=== PATIENT | male | born 1970 ===

== ENCOUNTER 2023-03-02 17:05 | Emergency (ER) | payer BC ==
--- OUTSIDE RECORDS SUMMARY | 2023-03-02 17:09 | XMS REPORT | Continuity of Care Document ---
:1970 Author Organization [facility] t Address [address] [place] [address] Care Team Providers Name Role Phone Asked, No Pcp Primary Care Physician Unavailable SHANIKA ANDERSON Attending Clinician Unavailable Problems This patient has no known problems. Allergies, Adverse Reactions, Alerts This patient has no known allergies or adverse reactions. Social History Social Habit Start Date Stop Date Quantity Comments Source Sexual orientation Method [facility] Sex Assigned At [birth year] [facility] 00:00:00 00:00:00 Smoking Status Start Date Stop Date Source Tobacco smoking consumption unknown [facility] Medications This patient has no known medications. Procedures This patient has no known procedures. Plan of Care Planned Activity Planned Date Details Comments Source Future Scheduled 2023-02-08 INFLUENZA VACCINE Method [facility] Test 01:37:45 (#1) [code = INFLUENZA VACCINE (#1)] Future Scheduled 2023-02-08 Screening for [facility] Test 01:37:45 malignant neoplasm of colon (procedure) [code = 740532172] Future Scheduled 2023-02-08 Screening for [facility] Test 01:37:45 malignant neoplasm of colon (procedure) [code = 027851144] Future Scheduled 2023-02-08 Screening for [facility] Test 01:37:45 malignant neoplasm of colon (procedure) [code = 125628063] Future Scheduled 2023-02-08 COVID-19 VACCINE [facility] Test 01:37:45 (#1) [code = COVID-19 VACCINE (#1)] Future Scheduled 2023-02-08 [facility] Test 01:37:45 screening (procedure) [code = [id number]] Future Scheduled 2023-02-08 Screening for [facility] Test 01:37:45 malignant neoplasm of colon (procedure) [code = 951422500] Future Scheduled 2023-02-08 Screening for [facility] Test 01:37:45 malignant neoplasm of colon (procedure) [code = 754345665] Future Scheduled 2023-02-08 [facility]INES [facility] Test 01:37:45 (1 of 2) [code = SHINGLES VACCINES (1 of 2)] Encounters Start End Encounter Admission Attending Care Care Encounter Source Date/Time Date/Time Type Type Clinicians Facility Department ID 2021-01-05 2021-01-05 Outpatient [facility] [id number] [place] 00:00:00 00:00:00 SHANIKA [address] 2021-01-05 2021-01-05 Outpatient [facility] [id number] [place] 00:00:00 00:00:00 SHANIKA [address] Results This patient has no known results.
[2023-03-02 18:29] LABS: Absolute Lymphocytes (CBC) 1.2 K/uL (0.7-4.9); Hematocrit 44.9 % (39.6-49.0); Lymphocytes % 8.4 % (15.3-44.8); MCV 88.4 fL (80-100); MPV 7.7 fL (7.6-11.3); Platelets 214 thou/uL (152-406); RBC Red Blood Cell Count 5.08 M/uL (4.33-5.43)
[2023-03-02] MEDS ORDERED: NA CHLORIDE 0.9% 1,000 ML ONE (18:29)
[2023-03-02] MEDS ORDERED: ONDANSETRON 4 MG/2 ML VIAL ONE (18:29)
[2023-03-02 18:46] LABS: Bilirubin Total 0.4 mg/dL (0.2-1.0); Potassium 3.7 mEq/L (3.5-5.1); Protein, Total 7.6 g/dL (6.4-8.2); Troponin High Sensitivity 5.9 pg/mL (<58.9)
--- NOTE | 2023-03-02 19:34 | RAD REPORT ---
EXAM DESCRIPTION: RAD - Chest Single View - 03/02/2023 7:21 pm CLINICAL HISTORY: COUGH Chest pain. COMPARISON: <Comparisons> FINDINGS: Portable technique limits examination quality. The lungs are grossly clear. The heart is normal in size. No displaced fractures. IMPRESSION: No acute intrathoracic process suspected.
--- NOTE | 2023-03-02 20:05 | ER ---
Nurse's Notes [facility] Name: Kvng Nevarez Age: 52 yrs Sex: Male : 1970 Arrival Date: 03/02/2023 Time: 17:05 Bed 13 Private MD: Diagnosis: Vomiting Presentation: 03/02 17:40 Chief complaint: N/V/D and abdominal cramps that started this afternoon after first hb dose of Augmentin. Coronavirus screen: Client presents with at least one sign or symptom that may indicate coronavirus-19. Provider contacted for isolation considerations. Ebola Screen: No symptoms or risks identified at this time. Initial Sepsis Screen: Does the patient meet any 2 criteria? No. Patient's initial sepsis screen is negative. Does the patient have a suspected source of infection? No. Patient's initial sepsis screen is negative. Risk Assessment: Do you want to hurt yourself or someone else? Patient reports no desire to harm self or others. Onset of symptoms was March 02, 2023. 17:40 Method Of Arrival: Ambulatory hb 17:40 Acuity: DARIEL 3 hb Triage Assessment: 18:24 General: Appears in no apparent distress. comfortable, Behavior is calm, cooperative. db Pain: Complains of pain in abdomen. Neuro: Level of Consciousness is awake, alert, obeys commands, Oriented to person, place, time, situation, Appropriate for age. GI: Abdomen is flat, Reports lower abdominal pain, cramping, nausea, vomiting. Historical: - Allergies: 17:42 No Known Allergies; hb - PMHx: 17:42 None; hb - PSHx: 17:42 None; hb - Immunization history:: Adult Immunizations unknown. - Family history:: not pertinent. - Social history:: Smoking status: unknown. Screenin:26 [facility] ED Fall Risk Assessment (Adult) History of falling in the last 3 months, db including since admission No falls in past 3 months (0 pts) Confusion or Disorientation No (0 pts) Intoxicated or Sedated No (0 pts) Impaired Gait No (0 pts) Mobility Assist Device Used No (0 pt) Altered Elimination No (0 pt) Score/Fall Risk Level 0 - 2 = Low Risk Oriented to surroundings, Maintained a safe environment. Abuse screen: Denies threats or abuse. Denies injuries from another. Nutritional screening: No deficits noted. Tuberculosis screening: No symptoms or risk factors identified. Assessment: 18:25 Reassessment: Patient appears in no apparent distress at this time. Patient and/or db family updated on plan of care and expected duration. Pain level reassessed. Patient is alert, oriented x 3, equal unlabored respirations, skin warm/dry/pink. General: Appears in no apparent distress. comfortable, Behavior is calm, cooperative. Neuro: Level of Consciousness is awake, alert, confused, Oriented to person, place, time, situation. Respiratory: Airway is patent Respiratory effort is even, unlabored, Respiratory pattern is regular, symmetrical. GI: Abdomen is flat, non-distended. 19:30 Reassessment: Patient appears in no apparent distress at this time. No changes from [facility] previously documented assessment. Patient and/or family updated on plan of care and expected duration. Pain level reassessed. Patient is alert, oriented x 3, equal unlabored respirations, skin warm/dry/pink. 20:15 Reassessment: Patient appears in no apparent distress at this time. Patient and/or jw7 family updated on plan of care and expected duration. Pain level reassessed. Patient is alert, oriented x 3, equal unlabored respirations, skin warm/dry/pink. Patient states feeling better. Patient states symptoms have improved. Vital Signs: 17:40 BP 122 / 79; Pulse 84; Resp 16; Temp 98.1(TE); Pulse Ox 99% on R/A; hb 18:15 BP 108 / 81; Pulse 76; Resp 18; Pulse Ox 100% on R/A; db 19:00 BP 114 / 74; Pulse 82; Resp 16 S; Pulse Ox 100% on R/A; jw7 20:00 BP 108 / 80; Pulse 82; Resp 15 S; Pulse Ox 100% on R/A; jw7 ED Course: 17:10 Patient arrived in ED. mg5 17:25 Gilles Pepper MD is Attending Physician. rt 17:42 Triage completed. hb 17:43 Arm band placed on. hb 17:57 Norma Flores, JOSE G is Primary Nurse. db 18:09 Inserted saline lock: 20 gauge in right antecubital area, using aseptic technique. db Blood collected. 18:25 Patient placed in an exam room. db 18:26 Patient has correct armband on for positive identification. Bed in low position. Call db light in reach. Side rails up X 1. Pulse ox on. NIBP on. Warm blanket given. 19:23 Chest Single View XRAY In Process Unspecified. EDMS 20:23 Provided Education on: discharge instructions. jw7 20:23 No provider procedures requiring assistance completed. IV discontinued, intact, jw7 bleeding controlled, No redness/swelling at site. Pressure dressing applied. Administered Medications: 18:14 Drug: NS 0.9% IV 1000 ml IV at 1 bolus Per protocol; 1000 mL bolus Route: IV; Rate: 1 db bolus; Site: right antecubital; 19:56 Follow up: Response: No adverse reaction; IV Status: Completed infusion; IV Intake: jw7 1000ml 18:23 Not Given (Patient Refused): ondansetron 4 mg IVP once; over 2 minutes db Medication: 18:26 VIS not applicable for this client. db Intake: 19:56 IV: 1000ml; Total: 1000ml. jw7 Outcome: 20:05 Discharge ordered by . rt 20:23 Discharged to home ambulatory, jw7 20:23 Condition: stable 20:23 Discharge instructions given to patient, Instructed on discharge instructions, follow up and referral plans. Demonstrated understanding of instructions, follow-up care, 20:24 Patient left the ED. jw7 Signatures: Dispatcher [employer] EDMI Sudha Ni RN RN Claudine Barcenas RN JOSE G jwNorma Merritt RN RN db Gilles Pepper MD MD rt Rebecca Smith mg5 Corrections: (The following items were deleted from the chart) 17:43 17:40 Chief complaint: Vomiting and abdominal cramps that started this afternoon after hb first dose of Augmentin. hb
--- NOTE | 2023-03-02 20:05 | EDPHYS ---
Physician Documentation [facility] Name: Kvng Nevarez Age: 52 yrs Sex: Male : 1970 Arrival Date: 03/02/2023 Time: 17:05 Bed 13 Private MD: ED Physician Gilles Pepper HPI: 03/02 20:19 This 52 yrs old Male presents to ER via Ambulatory with complaints of Vomiting. rt 20:19 Patient presents to the ED with a cough, vomiting. Patient was recently started on rt Augmentin for the cough, did not have an x-ray. States that he has had vomiting and diarrhea since starting. Denies hematemesis, hematochezia. Reports diarrhea. Denies other acute complaints at this time, symptoms are mild in severity, no other aggravating alleviating factors.. Historical: - Allergies: 17:42 No Known Allergies; hb - PMHx: 17:42 None; hb - PSHx: 17:42 None; hb - Immunization history:: Adult Immunizations unknown. - Family history:: not pertinent. - Social history:: Smoking status: unknown. ROS: 20:19 Constitutional: Negative for fever, chills, and weight loss, Cardiovascular: Negative rt for chest pain, palpitations, and edema, MS/Extremity: Negative for injury and deformity, Skin: Negative for injury, rash, and discoloration, Neuro: Negative for headache, weakness, numbness, tingling, and seizure, Psych: Negative for depression, anxiety, suicide ideation, homicidal ideation, and hallucinations, 20:19 Respiratory: Positive for cough, Negative for shortness of breath, 20:19 Abdomen/GI: Positive for nausea, vomiting, and diarrhea, Negative for abdominal pain, Exam: 20:19 Constitutional: This is a well developed, well nourished patient who is awake, alert, rt and in no acute distress. Head/Face: Normocephalic, atraumatic. Chest/axilla: Normal chest wall appearance and motion. Nontender with no deformity. No lesions are appreciated. Cardiovascular: Regular rate and rhythm with a normal S1 and S2. No gallops, murmurs, or rubs. Normal PMI, no JVD. No pulse deficits. Respiratory: Lungs have equal breath sounds bilaterally, clear to auscultation and percussion. No rales, rhonchi or wheezes noted. No increased work of breathing, no retractions or nasal flaring. Abdomen/GI: Soft, non-tender, with normal bowel sounds. No distension or tympany. No guarding or rebound. No evidence of tenderness throughout. Skin: Warm, dry with normal turgor. Normal color with no rashes, no lesions, and no evidence of cellulitis. MS/ Extremity: Pulses equal, no cyanosis. Neurovascular intact. Full, normal range of motion. Neuro: Awake and alert, GCS 15, oriented to person, place, time, and situation. Cranial nerves II-XII grossly intact. Motor strength 5/5 in all extremities. Sensory grossly intact. Cerebellar exam normal. Normal gait. Psych: Awake, alert, with orientation to person, place and time. Behavior, mood, and affect are within normal limits. 20:19 ECG was reviewed by the Attending Physician. Vital Signs: 17:40 BP 122 / 79; Pulse 84; Resp 16; Temp 98.1(TE); Pulse Ox 99% on R/A; hb 18:15 BP 108 / 81; Pulse 76; Resp 18; Pulse Ox 100% on R/A; db 19:00 BP 114 / 74; Pulse 82; Resp 16 S; Pulse Ox 100% on R/A; jw7 20:00 BP 108 / 80; Pulse 82; Resp 15 S; Pulse Ox 100% on R/A; jw7 MDM: 17:54 Patient medically screened. rt 20:19 Differential diagnosis: Medication side effect, gastroenteritis, pneumonia, viral rt infection. Data reviewed: vital signs, nurses notes, lab test result(s), EKG. I considered the following discharge prescriptions or medication management in the emergency department Medications were administered in the Emergency Department. See MAR. Independent interpretation of the following test(s) in the Emergency Department X-Ray: My interpretation is No consolidation seen on interpretation of CT scan images. Test considered but Not performed: CT: No abdominal pain, benign abdominal examination, symptoms improving with treatment, stable labs, very low suspicion for acute surgical pathology such as appendicitis, cholecystitis, bowel obstruction. CT scan not indicated.. Counseling: I had a detailed discussion with the patient and/or guardian regarding the historical points, exam findings, and any diagnostic results supporting the discharge/admit diagnosis, lab results, radiology results, the need for outpatient follow up. Response to treatment: the patient's symptoms have resolved after treatment. 03/02 17:55 Order name: CBC with Diff; Complete Time: 18:42 rt 03/02 17:55 Order name: CMP; Complete Time: 18:56 rt 03/02 17:55 Order name: Lipase; Complete Time: 18:56 rt 03/02 17:55 Order name: Troponin High Sensitivity; Complete Time: 18:56 rt 03/02 18:42 Order name: Chest Single View XRAY; Complete Time: 19:36 rt 03/02 17:55 Order name: EKG; Complete Time: 17:56 rt 03/02 17:55 Order name: EKG - Nurse/Tech; Complete Time: 18:12 rt EC:19 Rate is 71 beats/min. Rhythm is regular, Normal Sinus Rhythm with No ectopy. QRS [place] rt is Normal. IA interval is normal. QRS interval is normal. QT interval is normal. No Q waves. T waves are Normal. No ST changes noted. Interpreted by me. Administered Medications: 18:14 Drug: NS 0.9% IV 1000 ml IV at 1 bolus Per protocol; 1000 mL bolus Route: IV; Rate: 1 db bolus; Site: right antecubital; 19:56 Follow up: Response: No adverse reaction; IV Status: Completed infusion; IV Intake: jw7 1000ml 18:23 Not Given (Patient Refused): ondansetron 4 mg IVP once; over 2 minutes db Disposition Summary: 03/02/23 20:05 Discharge Ordered Notes: Location: Home rt Condition: Stable rt Diagnosis - Vomiting rt Followup: rt - With: Private Physician - When: 2 - 3 days - Reason: Discharge Instructions: - Discharge Summary Sheet rt - Vomiting, Adult rt Forms: - Medication Reconciliation Form rt - Thank You Letter rt - Antibiotic Education rt - Prescription Opioid Use rt - Patient Portal Instructions rt - Leadership Thank You Letter rt Signatures: Dispatcher [employer] Sudha Hernandez, RN Claudine Young RN RN jw7 Benton, Danielle, RN RN db [place], Ryan, MD MD rt
[2023-03-02 20:52] VITALS: TEMP 98.1
[2023-03-02 20:54] VITALS: O2SAT 100
[2023-03-02 20:57] VITALS: BP 108/80
--- NOTE | 2023-03-04 16:53 | EKG ---
Test Date: 2023-03-02 Test Time: 18:09:19 Orthotic Practitioner: ZENOBIA MEASUREMENT RESULTS: Intervals: Rate: 71 GA: 112 QRSD: 80 QT: 396 QTc: 430 Seltzer: P: 69 GA: 112 QRS: 65 T: 34 INTERPRETIVE STATEMENTS: Normal sinus rhythm Normal ECG Compared to ECG 01/23/2013 10:34:12 Sinus bradycardia no longer present Electronically Signed On 03-04-23 16:50:14 [employer] by Ayden Trevino
== END 2023-03-02 20:24 | disposition home or self-care (01) ==
LOC: ER 17:05
DX: R11.10 Vomiting, unspecified (principal); R05.9 Cough, unspecified; R19.7 Diarrhea, unspecified
CPT/HCPCS: 96361; 93005; 85025; 36415; 84484; 83690; 80053; 71045; 96360; 99284; J2405; J7030